=== PATIENT | male | born 1970 | race African-American/Black ===

== ENCOUNTER 2017-08-24 14:54 | Inpatient (IN) | payer SELFPAY ==
[~2017-08-24] VITALS: Ht 167.6 cm; Wt 86.2 kg
[2017-08-24 16:00] LABS: CALCIUM 9.5 mg/dL (8.5-10.1); CARBON DIOXIDE 22.6 mmol/L (21-32); CHLORIDE SERUM 103 mmol/L (98-107); GFR1 > 60 mL/min; GLUCOSE SERUM 171 mg/dL (74-106); POTASSIUM SERUM 3.5 mmol/L (3.5-5.1); SODIUM SERUM 140 mmol/L (136-145)
[2017-08-24 16:04] LABS: ALKALINE PHOSPHATASE 83 U/L (46-116); ALT/SGPT 15 U/L (16-63); AST/SGOT 19 U/L (15-37); BILIRUBIN TOTAL 0.5 mg/dL (0.20-1.00)
[2017-08-24 16:06] LABS: BASOPHIL % 0.2 % (0-2); PLATELET COUNT 353 x10^3mcL (130-400)
[2017-08-24 16:07] LABS: RED CELL DISTRIBUTION WIDTH 15.5 % (11.5-14.5)
[2017-08-24] MEDS ORDERED: ATORVASTATIN CA40 M1 (18:19)
[2017-08-24] MEDS ORDERED: COREG12.5 MG (18:19)
[2017-08-24] MEDS ORDERED: NORVASC2.5 MG (18:19)
[2017-08-24] MEDS ORDERED: ASPIR 8181 MG PO (18:20)
[2017-08-24] MEDS ORDERED: AMBIEN5 MG PO (18:20)
[2017-08-24 19:39] LABS: MAGNESIUM 1.8 mg/dL (1.8-2.4); PHOSPHOROUS 2.8 mg/dL (2.5-4.9)
[2017-08-24 19:47] LABS: T3 TOTAL 0.97 ng/mL
[2017-08-24 19:48] LABS: FREE T4 0.96 ng/dL (0.76-1.46); FREE THYROXINE INDEX 2.1 ug/dL (1.4-4.5); T4(THYROXINE) 6.5 ug/dL (4.7-13.3)
[2017-08-24 20:24] VITALS: BP 168/97
[2017-08-24 20:26] VITALS: Ht 167.6 cm; Wt 86.2 kg
[2017-08-25 05:54] VITALS: BP 170/92
[2017-08-25 07:05] LABS: UA SPECIFIC GRAVITY 1.025 (1.005-1.035); microscopic required? YES; urine erythrocyte TRACE (NEGATIVE)
[2017-08-25 07:33] LABS: PLATELET COUNT 301 x10^3mcL (130-400)
[2017-08-25 07:37] LABS: BASOPHIL % 0 % (0-2)
[2017-08-25 07:43] LABS: CALCIUM 8.9 mg/dL (8.5-10.1); CARBON DIOXIDE 23.6 mmol/L (21-32); CHLORIDE SERUM 106 mmol/L (98-107); CREATININE SERUM 0.9 mg/dL (0.7-1.3); GFR1 > 60 mL/min; GLUCOSE SERUM 118 mg/dL (74-106); MAGNESIUM 1.9 mg/dL (1.8-2.4); PHOSPHOROUS 3.3 mg/dL (2.5-4.9); POTASSIUM SERUM 3.6 mmol/L (3.5-5.1); SODIUM SERUM 142 mmol/L (136-145)
[2017-08-25 08:37] LABS: AMPHETAMINE QUAL UR NONE DETECTED (NEG <=1000)
[2017-08-25 09:15] VITALS: BP 169/96
[2017-08-25 13:56] VITALS: BP 172/95
[2017-08-25 17:39] VITALS: BP 180/80
[2017-08-25 21:33] VITALS: BP 166/90
[2017-08-26 04:51] LABS: BASOPHIL % 0.3 % (0-2); PLATELET COUNT 317 x10^3mcL (130-400)
[2017-08-26 04:54] LABS: RED CELL DISTRIBUTION WIDTH 15.6 % (11.5-14.5)
[2017-08-26 05:16] LABS: CALCIUM 8.7 mg/dL (8.5-10.1); CARBON DIOXIDE 23.8 mmol/L (21-32); CHLORIDE SERUM 104 mmol/L (98-107); CREATININE SERUM 0.9 mg/dL (0.7-1.3); GFR1 > 60 mL/min; GLUCOSE SERUM 113 mg/dL (74-106); MAGNESIUM 1.9 mg/dL (1.8-2.4); PHOSPHOROUS 3.5 mg/dL (2.5-4.9); POTASSIUM SERUM 3.2 mmol/L (3.5-5.1); SODIUM SERUM 139 mmol/L (136-145)
[2017-08-26 06:15] VITALS: BP 157/85
[2017-08-26 09:18] VITALS: BP 155/83
[2017-08-26 12:31] VITALS: BP 151/84
[2017-08-26 14:57] VITALS: BP 128/68
[2017-08-26 17:47] VITALS: BP 126/68
[2017-08-26 20:57] VITALS: BP 149/84
[2017-08-27 05:45] VITALS: BP 157/89
[2017-08-27 07:32] LABS: BASOPHIL % 0.2 % (0-2); PLATELET COUNT 312 x10^3mcL (130-400)
[2017-08-27 07:37] LABS: RED CELL DISTRIBUTION WIDTH 15.5 % (11.5-14.5)
[2017-08-27 07:58] LABS: CALCIUM 8.9 mg/dL (8.5-10.1); CARBON DIOXIDE 20.4 mmol/L (21-32); CHLORIDE SERUM 104 mmol/L (98-107); CREATININE SERUM 0.8 mg/dL (0.7-1.3); GFR1 > 60 mL/min; GLUCOSE SERUM 115 mg/dL (74-106); MAGNESIUM 2.3 mg/dL (1.8-2.4); PHOSPHOROUS 3.3 mg/dL (2.5-4.9); POTASSIUM SERUM 3.1 mmol/L (3.5-5.1); SODIUM SERUM 137 mmol/L (136-145)
[2017-08-27 09:15] VITALS: BP 155/85
[2017-08-27] MEDS ORDERED: NORVASC2.5 MG PO (11:12)
[2017-08-27] MEDS ORDERED: FLO4 PO (11:12)
[2017-08-27] MEDS ORDERED: ASPIR 8181 MG PO (11:12)
[2017-08-27] MEDS ORDERED: COREG12.5 MG PO (11:12)
[2017-08-27] MEDS ORDERED: ZOF4 PO (11:12)
[2017-08-27] MEDS ORDERED: ATORVASTATIN CA40 M1 PO (11:12)
[2017-08-27 12:33] VITALS: BP 155/85
== END 2017-08-27 12:59 | disposition home or self-care (01) | DRG 205 ==
LOC: ED 14:54 → DU 18:16
PROVIDERS: Emergency Medicine; Family Medicine; Internal Medicine Interventional Cardiology
PROC: B2151ZZ Fluoroscopy of Left Heart using Low Osmolar Contrast (ICD-10-PCS; 2017-08-26)
PROC: B2111ZZ Fluoroscopy of Multiple Coronary Arteries using Low Osmolar Contrast (ICD-10-PCS; 2017-08-26)
PROC: B5191ZZ Fluoroscopy of Inferior Vena Cava using Low Osmolar Contrast (ICD-10-PCS; 2017-08-26)
PROC: 4A023N7 Measurement of Cardiac Sampling and Pressure, Left Heart, Percutaneous Approach (ICD-10-PCS; principal; 2017-08-26 13:30)
DX: M94.0 Chondrocostal junction syndrome [Tietze] (principal); N17.0 Acute kidney failure with tubular necrosis; I50.43 Acute on chronic combined systolic (congestive) and diastolic (congestive) heart failure; I11.0 Hypertensive heart disease with heart failure; I16.0 Hypertensive urgency; I25.2 Old myocardial infarction; Z86.711 Personal history of pulmonary embolism; I25.10 Atherosclerotic heart disease of native coronary artery without angina pectoris; Z95.5 Presence of coronary angioplasty implant and graft; Z83.3 Family history of diabetes mellitus; Z82.49 Family history of ischemic heart disease and other diseases of the circulatory system; F17.200 Nicotine dependence, unspecified, uncomplicated; E02 Subclinical iodine-deficiency hypothyroidism; E87.6 Hypokalemia
CPT/HCPCS: CLHCL; 83880; 84439; C1769; C1887; C1894; J0360; J1200; J1642; J1644; J1885; J2001; J2250; J2270; J2405; J2550; J2765; J3010; J3480; J3490; J7030; J7040; J8597; Q0092; Q9967